=== PATIENT | female | born 1970 | race Caucasian/White ===

== ENCOUNTER 2022-02-02 15:41 | Emergency (ER) | payer OTHER, SELFPAY ==
[~2022-02-02] VITALS: Ht 160 cm; Wt 81.8 kg
[2022-02-02 15:43] VITALS: BP 112/72
[2022-02-02] MEDS ORDERED: traMADol 50 MG TAB PO ONE (20:20)
== END 2022-02-02 20:43 | disposition home or self-care (01) ==
LOC: M ED 20:26
DX: G89.18 Other acute postprocedural pain (principal); S62.92XD Unspecified fracture of left hand, subsequent encounter for fracture with routine healing; Z88.6 Allergy status to analgesic agent; Z88.8 Allergy status to other drugs, medicaments and biological substances